=== PATIENT | female | born 1965 | race Two or more races ===

== ENCOUNTER → 2016-12-06 | Outpatient (CLI) | payer BC ==
--- NOTE | 2016-12-06 13:00 | RAD ---
EXAM: DIGITAL SCREEN BILAT W/CAD. HISTORY: Screening. COMPARISON: 09/25/2015, 07/11/2013. FINDINGS: Digital mammography was performed. Computer-aided detection (CAD) was utilized. The breast parenchyma demonstrates scattered fibroglandular densities (tissue density B). No dominant suspicious mass, suspicious microcalcifications, or architectural distortion is identified. Left breast demonstrates a few, scattered, benign-appearing calcifications. IMPRESSION: No mammographic evidence of malignancy. BI-RADS CATEGORY: 2 BENIGN FINDING(S) RECOMMENDED FOLLOW-UP: 12M 12 MONTH FOLLOW-UP PQRS compliance statement: Patient information was entered into a reminder system with a target due date for the next mammogram. Mammography is a sensitive method for finding small breast cancers, but it does not detect them all and is not a substitute for careful clinical examination. A negative mammogram does not negate a clinically suspicious finding and should not result in delay in biopsying a clinically suspicious abnormality. "Our facility is accredited by the [employer] Mammography [employer]."
== END | disposition home or self-care (01) ==
LOC: MAMMO 12:20
PROVIDERS: ATTEND Obstetrics & Gynecology
DX: Z12.31 Encounter for screening mammogram for malignant neoplasm of breast (principal)
CPT/HCPCS: G0202; 77067

== ENCOUNTER → 2017-12-07 | Outpatient (CLI) | payer BC | END | disposition home or self-care (01) | LOC: MAMMO 10:06 | DX: Z12.31 Encounter for screening mammogram for malignant neoplasm of breast (principal) | CPT/HCPCS: 77067 ==

== ENCOUNTER → 2019-01-19 | Outpatient (CLI) | payer BC ==
--- NOTE | 2019-01-21 09:38 | RAD ---
DATE: 01/21/2019. EXAM: MAMMO ROSA SCREENING BILATERAL HISTORY: Routine screening. COMPARISON: Previous mammogram from 2018 and 2016. This study was interpreted with the benefit of Computerized Aided Detection (CAD). FINDINGS: Breast Density: HETERO The breast parenchyma Is heterogeneously dense, which could reduce sensitivity of mammography. Breast parenchyma level C. The skin and nipples are within normal limits. No suspicious calcifications, spiculated mass or area of architectural distortion. Benign-appearing bilateral calcifications. IMPRESSION: No mammographic evidence of malignancy. Stable mammogram. BI-RADS CATEGORY: 2 BENIGN FINDING(S) RECOMMENDED FOLLOW-UP: 12M 12 MONTH FOLLOW-UP PQRS compliance statement: Patient information was entered into a reminder system with a target due date for the next mammogram. Mammography is a sensitive method for finding small breast cancers, but it does not detect them all and is not a substitute for careful clinical examination. A negative mammogram does not negate a clinically suspicious finding and should not result in delay in biopsying a clinically suspicious abnormality. "Our facility is accredited by the [employer] Mammography [employer]."
== END | disposition home or self-care (01) ==
LOC: MAMMO 09:32
PROVIDERS: ATTEND Family Medicine
DX: Z12.31 Encounter for screening mammogram for malignant neoplasm of breast (principal)
CPT/HCPCS: 77063; 77067

== ENCOUNTER → 2020-01-21 | Outpatient (CLI) | payer BC ==
--- NOTE | 2020-01-21 17:56 | RAD ---
BILATERAL SCREENING MAMMOGRAM, 3-D History: Routine screening. Comparison: 09/25/2015 12/06/2016 12/07/2017 01/19/2019. Technique: MLO and CC digital tomosynthesis (3D) images obtained. Radiologist reviewed these images on dedicated workstation. Findings: Breast Tissue Density B : There are scattered areas of fibroglandular density. There are no dominant masses, suspicious microcalcifications, or architectural distortion. IMPRESSION: No mammographic evidence of malignancy. Recommend routine screening. BI-RADS category 1: Negative. The images were reviewed with computer-aided detection. Patient information is entered into reminder system with a target due date for the next screening mammogram. Mammography is the most sensitive method for finding small breast cancers, but it does not detect them all and is not a substitute for careful clinical examination. A negative mammogram does not negate a clinically suspicious finding and should not result in delay in biopsying a clinically suspicious abnormality. "Our facility is accredited by the [employer]ammography [employer]." Electronically signed by: Hilario Mtz MD (01/21/2020 5:53 PM) [id number]
== END | disposition home or self-care (01) ==
LOC: MAMMO 09:02
PROVIDERS: ATTEND Family Medicine
DX: Z12.31 Encounter for screening mammogram for malignant neoplasm of breast (principal)
CPT/HCPCS: 77063; 77067

== ENCOUNTER → 2021-01-19 | Outpatient (CLI) | payer BC ==
--- NOTE | 2021-01-19 14:40 | RAD ---
EXAM: Bilateral digital screening mammogram with tomosynthesis. HISTORY: 55-year-old female presents for screening mammography. TECHNIQUE: Full-field digital craniocaudal and mediolateral oblique 2D and 3D tomosynthesis images of both breasts are obtained for evaluation. Computer aided detection was applied. COMPARISON: 01/31/2020 and 01/19/2019 BREAST PARENCHYMAL DENSITY: Level B - Scattered fibroglandular densities. FINDINGS: There is no new suspicious mass, microcalcification or region of architectural distortion. There are stable areas of asymmetry and nodularity within both breasts. There are benign calcificatio ns within both breasts. IMPRESSION: BI-RADS Category 2: Benign finding(s). RECOMMENDATION: Annual mammography is recommended. If your mammogram demonstrates that you have dense breast tissue, which could hide abnormalities, and if you have other risk factors for breast cancer that have been identified, you might benefit from s upplemental screening tests that may be suggested by your ordering physician. Dense breast tissue, i n and of itself, is a relatively common condition. This information is not provided to cause undue c oncern, but rather to raise your awareness and to promote discussion with your physician regarding th e presence of other risk factors, in addition to dense breast tissue. A report of your mammography re sults will be sent to you and your physician. You should contact your physician if you have any ques tions or concerns regarding this report. Mammography is a sensitive method for finding small breast cancers, but it does not detect them all a nd is not a substitute for careful clinical examination. A negative mammogram does not negate a clin ically suspicious finding and should not result in delay in biopsying a clinically suspicious abnorma lity. PQRS compliance statement - Patient information was entered into a reminder system with a target due date for the next mammogram. "Our facility is accredited by the [employer] Mammography [employer]." Electronically signed by: Megan Salcedo MD (01/19/2021 2:38 PM) [id number]
== END ==
LOC: MAMMO 12:33
PROVIDERS: ATTEND Obstetrics & Gynecology
DX: Z12.31 Encounter for screening mammogram for malignant neoplasm of breast (principal)
CPT/HCPCS: 77063; 77067